=== PATIENT | female | born 1950 | race Caucasian/White ===

== ENCOUNTER → 2017-08-16 | Outpatient (CLI) | payer MEDICARE, BC ==
[~2017-08-16] MED LIST: ALPR.5CR PO; AMLO10 PO; AMLODIPINE-OLM1 EAC2 PO; ASPI325 PO; ASPI81EC PO; Aspirin EC81 MG PO; CHOL10002 PO; CIPR500 PO; CYAN500 PO; DICL75ER PO; DRON400T PO; DULO30 PO; DULO60 PO; ELIQUIS5 MG PO; ERGO400 PO; EXFORGE HCT; EXFORGE HCT 101 EAC2 PO; GABA100 PO; Glucophage1000 MG PO; HYDACE5 PO; HYDCHL12.5 PO; IBUP600 PO; IPRA.03NI; LEVSOD100 PO; LEVSOD75 PO; MAGCHL64ER; MAGNESIUM250 MG; MAGOXI400 PO; METF500 PO; MULVITMIND PO; NEBI10 PO; NEBI5 PO; OMEG1CAP30 PO; OMEP20ER PO; ONGLYZA5 MG PO; PSYL5.85P PO; Phentermine HCl15 MG PO; RANI150 PO; ROSU10TA PO; SAXA2.5T PO; Super B Comple150 MG PO; TOCO400 PO; TOPI25 PO; VALS80 PO; WARF7.5 PO; ZOLP10 PO
== END ==
LOC: LAB EV 11:15 → LAB SHORT 11:15
DX: R39.198 Other difficulties with micturition (principal)
CPT/HCPCS: 87086

== ENCOUNTER → 2018-05-18 | Outpatient (CLI) | payer MEDICARE, BC | END | disposition home or self-care (01) | LOC: LAB EV 17:57 → LAB SHORT 17:57 | DX: N90.7 Vulvar cyst (principal) | CPT/HCPCS: 87070; 87075; 87077; 87186; 87205 ==

== ENCOUNTER → 2018-12-07 | Outpatient (CLI) | payer MEDICARE, BC | END | disposition home or self-care (01) | LOC: LAB SHORT 12:05 → PLD 12:05 | DX: L60.2 Onychogryphosis (principal); B35.1 Tinea unguium | CPT/HCPCS: 88305; 88312 ==

== ENCOUNTER → 2019-05-01 | Outpatient (CLI) | payer MEDICARE, BC ==
[2019-05-01 13:23] LABS: BASOPHILS ABSOLUTE AUTO 0.07 K/mm3 (0.00-0.23); BASOPHILS PERCENT AUTO 1 % (0-2); EOSINOPHILS ABSOLUTE AUTO 0.25 K/mm3 (0.00-0.68); EOSINOPHILS PERCENT AUTO 2 % (0-6); Hematocrit 38.8 % (33.0-51.0); Hemoglobin 13.3 g/dL (11.5-16.0); IMMATURE GRAN ABSOLUTE AUTO 0.06 K/mm3 (0.00-0.10); IMMATURE GRAN PERCENT AUTO 1 % (0-1); LYMPHOCYTES ABSOLUTE AUTO 1.76 K/mm3 (0.84-5.20); LYMPHOCYTES PERCENT AUTO 15 % (21-46); MONOCYTES ABSOLUTE AUTO 0.91 K/mm3 (0.16-1.47); MONOCYTES PERCENT AUTO 8 % (4-13); Mean Corpuscular HGB 30.9 pg (26.0-34.0); Mean Corpuscular HGB Conc 34.3 g/dL (31.5-36.5); Mean Corpuscular Volume 90 fL (80-100); Mean Platelet Volume 10.2 fL (9.1-12.4); NEUTROPHILS ABSOLUTE AUTO 8.72 K/mm3 (1.96-9.15); NEUTROPHILS PERCENT AUTO 74 % (41-73); Platelet Count 274 K/mm3 (150-400); RDW Coefficient Variation 12.9 % (11.7-14.2); RDW Standard Deviation 42.2 fL (35.1-46.3); White Blood Cell Count 11.77 K/mm3 (4.00-11.30)
[2019-05-01 13:42] LABS: Alanine Aminotransfer (ALT/SGP 28 U/L (12-78); Albumin, Blood 4.1 g/dL (3.4-5.0); Albumin/Globulin Ratio 1.1 (0.8-1.8); Alk Phos 82 U/L (40-126); Anion Gap 12 mmol/L (6-16); Aspartate Aminotrans (AST/SGOT 21 U/L (12-37); Bilirubin, Total 0.9 mg/dL (0.1-1.0); Blood Urea Nitrogen 10 mg/dL (8-24); Bun/Creatinine Ratio 10.9 (12.0-20.0); CO2, Blood 24 mmol/L (21-32); Calcium, Blood 9.2 mg/dL (8.5-10.1); Chloride, Blood 99 mmol/L (98-108); Creatinine, Blood 0.92 mg/dL (0.40-1.00); Globulin, Blood 3.7 g/dL (2.2-4.0); Glomerular Filtration Rate >60 (60-); Glucose, Blood 95 mg/dL (70-99); Potassium, Blood 3.8 mmol/L (3.5-5.5); Sodium, Blood 135 mmol/L (136-145); Total Protein, Blood 7.8 g/dL (6.4-8.2)
== END | disposition home or self-care (01) ==
LOC: LAB EV 13:19 → LAB SHORT 13:19
PROVIDERS: Physician Assistant
DX: R10.32 Left lower quadrant pain (principal)
CPT/HCPCS: 80053; 83690; 85025

== ENCOUNTER 2020-04-02 07:33 | Day surgery (SDC) | payer MEDICARE, BC ==
[~2020-04-02] VITALS: Ht 167.6 cm; Wt 125.3 kg
[~2020-04-02 07:33] MED LIST changes: +Avapro300 MG PO; +CLOP75 PO; +METO50ER PO; +Neurontin300 MG PO; +Pepcid 20 mg Ta20 MG PO
[2020-04-02] MEDS ORDERED: ALPR1 (08:24)
[2020-04-02] MEDS ORDERED: ALPR.5 (08:25)
[2020-04-02] MEDS ORDERED: DIAZ5 (08:25)
== END 2020-04-02 10:08 | disposition home or self-care (01) ==
LOC: ORSCSDS 07:33
PROVIDERS: Internal Medicine Gastroenterology
PROC: 0DBH8ZX Excision of Cecum, Via Natural or Artificial Opening Endoscopic, Diagnostic (ICD-10-PCS; principal; 2020-04-02 09:00)
PROC: 0DBN8ZX Excision of Sigmoid Colon, Via Natural or Artificial Opening Endoscopic, Diagnostic (ICD-10-PCS; principal; 2020-04-02 09:00)
PROC: 0DBM8ZX Excision of Descending Colon, Via Natural or Artificial Opening Endoscopic, Diagnostic (ICD-10-PCS; principal; 2020-04-02 09:00)
PROC: 0DBK8ZX Excision of Ascending Colon, Via Natural or Artificial Opening Endoscopic, Diagnostic (ICD-10-PCS; principal; 2020-04-02 09:00)
DX: Z86.010 Personal history of colon polyps (principal); D12.0 Benign neoplasm of cecum; D12.2 Benign neoplasm of ascending colon; D12.4 Benign neoplasm of descending colon; D12.5 Benign neoplasm of sigmoid colon; K57.30 Diverticulosis of large intestine without perforation or abscess without bleeding; N81.6 Rectocele; G47.33 Obstructive sleep apnea (adult) (pediatric); J44.9 Chronic obstructive pulmonary disease, unspecified; I48.91 Unspecified atrial fibrillation; I10 Essential (primary) hypertension; E66.01 Morbid (severe) obesity due to excess calories; Z68.41 Body mass index [BMI] 40.0-44.9, adult; Z79.01 Long term (current) use of anticoagulants; Z79.82 Long term (current) use of aspirin; Z79.4 Long term (current) use of insulin; Z79.899 Other long term (current) drug therapy
CPT/HCPCS: 82947; 88305; J0330; J0461; J2405; J2704; J7120

== ENCOUNTER 2020-05-08 12:21 | Emergency (ER) | payer MEDICARE, BC ==
[~2020-05-08] VITALS: Ht 167.6 cm; Wt 127.0 kg
[~2020-05-08 12:21] MED LIST changes: +ALPR.5; +ALPR1; +DIAZ5
[2020-05-08] MEDS ORDERED: VICTOZA 2-0.6 MG/0.1 SC (15:58)
== END 2020-05-08 16:27 | disposition home or self-care (01) ==
LOC: ER 12:21
DX: S06.0X9A Concussion with loss of consciousness of unspecified duration, initial encounter (principal); E11.9 Type 2 diabetes mellitus without complications; I10 Essential (primary) hypertension; E78.5 Hyperlipidemia, unspecified; E03.9 Hypothyroidism, unspecified; Z79.82 Long term (current) use of aspirin; Z79.01 Long term (current) use of anticoagulants; Z79.02 Long term (current) use of antithrombotics/antiplatelets; Z79.84 Long term (current) use of oral hypoglycemic drugs; Z91.018 Allergy to other foods; Z79.899 Other long term (current) drug therapy; Z86.73 Personal history of transient ischemic attack (TIA), and cerebral infarction without residual deficits; W01.198A Fall on same level from slipping, tripping and stumbling with subsequent striking against other object, initial encounter
CPT/HCPCS: 70450; 99284-25

== ENCOUNTER 2020-07-08 18:24 | Emergency (ER) | payer MEDICARE, BC ==
[~2020-07-08] VITALS: Ht 167.6 cm; Wt 127.0 kg
[~2020-07-08 18:24] MED LIST changes: +VICTOZA 2-0.6 MG/0.1 SC
[2020-07-08 19:39] LABS: BASOPHILS ABSOLUTE AUTO 0.07 K/mm3 (0.00-0.23); BASOPHILS PERCENT AUTO 1 % (0-2); EOSINOPHILS ABSOLUTE AUTO 0.15 K/mm3 (0.00-0.68); EOSINOPHILS PERCENT AUTO 1 % (0-6); Hematocrit 40.1 % (33.0-51.0); Hemoglobin 13.7 g/dL (11.5-16.0); IMMATURE GRAN PERCENT AUTO 1 % (0-1); LYMPHOCYTES ABSOLUTE AUTO 2.25 K/mm3 (0.84-5.20); LYMPHOCYTES PERCENT AUTO 15 % (21-46); MONOCYTES ABSOLUTE AUTO 0.96 K/mm3 (0.16-1.47); MONOCYTES PERCENT AUTO 6 % (4-13); Mean Corpuscular HGB Conc 34.2 g/dL (31.5-36.5); Mean Corpuscular Volume 91 fL (80-100); NEUTROPHILS ABSOLUTE AUTO 11.38 K/mm3 (1.96-9.15); NEUTROPHILS PERCENT AUTO 76 % (41-73); Platelet Count 280 K/mm3 (150-400); RDW Coefficient Variation 12.8 % (11.7-14.2); RDW Standard Deviation 42.7 fL (35.1-46.3); Red Blood Cell Count 4.42 M/mm3 (3.80-5.20); White Blood Cell Count 15.01 K/mm3 (4.00-11.30)
[2020-07-08 19:58] LABS: Alanine Aminotransfer (ALT/SGP 40 U/L (12-78); Albumin, Blood 3.8 g/dL (3.4-5.0); Albumin/Globulin Ratio 1.1 (0.8-1.8); Alk Phos 84 U/L (50-136); Anion Gap 9 mmol/L (6-16); Aspartate Aminotrans (AST/SGOT 26 U/L (12-37); Bilirubin, Total 0.6 mg/dL (0.1-1.0); Blood Urea Nitrogen 12 mg/dL (8-24); Bun/Creatinine Ratio 17.7 (12.0-20.0); CO2, Blood 22 mmol/L (21-32); Calcium, Blood 9.5 mg/dL (8.5-10.1); Chloride, Blood 101 mmol/L (98-108); Creatinine, Blood 0.68 mg/dL (0.40-1.00); Globulin, Blood 3.6 g/dL (2.2-4.0); Glomerular Filtration Rate >60 (60-); Glucose, Blood 112 mg/dL (70-99); Potassium, Blood 4.2 mmol/L (3.5-5.5); Sodium, Blood 132 mmol/L (136-145); Total Protein, Blood 7.4 g/dL (6.4-8.2); Troponin I <0.015 ng/mL (0.000-0.040)
[2020-07-08] MEDS ORDERED: HYDR1TAB94 PO (21:39)
[2020-07-08] MEDS ORDERED: CYCL10 PO (21:39)
== END 2020-07-08 22:00 | disposition home or self-care (01) ==
LOC: ER 18:24
PROVIDERS: Physician Assistant
DX: R55 Syncope and collapse (principal); S00.03XA Contusion of scalp, initial encounter; E11.9 Type 2 diabetes mellitus without complications; E03.9 Hypothyroidism, unspecified; G43.909 Migraine, unspecified, not intractable, without status migrainosus; Z86.73 Personal history of transient ischemic attack (TIA), and cerebral infarction without residual deficits; Z79.82 Long term (current) use of aspirin; Z79.84 Long term (current) use of oral hypoglycemic drugs; Z79.899 Other long term (current) drug therapy; W01.198A Fall on same level from slipping, tripping and stumbling with subsequent striking against other object, initial encounter; I10 Essential (primary) hypertension; Z91.018 Allergy to other foods
CPT/HCPCS: 36415; 70450; 71046; 72125; 80053; 84484; 85025; 93005; 93010; 99284-25; A9270

== ENCOUNTER → 2020-10-15 | Outpatient (CLI) | payer MEDICARE ==
[~2020-10-15] MED LIST changes: +CYCL10 PO; +HYDR1TAB94 PO
== END ==
LOC: LAB SHORT 18:48 → LAB 18:48
DX: R30.0 Dysuria (principal)
CPT/HCPCS: 87086

== ENCOUNTER 2021-01-15 13:49 | Emergency (ER) | payer MEDICARE, BC ==
[~2021-01-15] VITALS: Ht 167.6 cm; Wt 122.5 kg
[~2021-01-15 13:49] MED LIST changes: -AMLO10 PO; +Aspir 8181 MG PO; -Aspirin EC81 MG PO; -Glucophage1000 MG PO; +Hair, Skin & N1 EACH PO; +METFORMIN HCL1000 M7 PO; -MULVITMIND PO
[2021-01-15 15:05] LABS: BASOPHILS ABSOLUTE AUTO 0.06 K/mm3 (0.00-0.23); BASOPHILS PERCENT AUTO 1 % (0-2); EOSINOPHILS ABSOLUTE AUTO 0.12 K/mm3 (0.00-0.68); EOSINOPHILS PERCENT AUTO 1 % (0-6); Hematocrit 41.2 % (33.0-51.0); Hemoglobin 14.2 g/dL (11.5-16.0); IMMATURE GRAN ABSOLUTE AUTO 0.06 K/mm3 (0.00-0.10); IMMATURE GRAN PERCENT AUTO 1 % (0-1); LYMPHOCYTES ABSOLUTE AUTO 2.38 K/mm3 (0.84-5.20); LYMPHOCYTES PERCENT AUTO 27 % (21-46); MONOCYTES ABSOLUTE AUTO 0.74 K/mm3 (0.16-1.47); MONOCYTES PERCENT AUTO 8 % (4-13); Mean Corpuscular HGB 30.3 pg (26.0-34.0); Mean Corpuscular HGB Conc 34.5 g/dL (31.5-36.5); Mean Corpuscular Volume 88 fL (80-100); Mean Platelet Volume 10.5 fL (9.1-12.4); NEUTROPHILS ABSOLUTE AUTO 5.59 K/mm3 (1.96-9.15); NEUTROPHILS PERCENT AUTO 62 % (41-73); Platelet Count 285 K/mm3 (150-400); RDW Coefficient Variation 12.9 % (11.7-14.2); RDW Standard Deviation 41.1 fL (35.1-46.3); Red Blood Cell Count 4.69 M/mm3 (3.80-5.20); White Blood Cell Count 8.95 K/mm3 (4.00-11.30)
[2021-01-15 15:21] LABS: Anion Gap 8 mmol/L (6-16); Blood Urea Nitrogen 9 mg/dL (8-24); Bun/Creatinine Ratio 12.3 (12.0-20.0); CO2, Blood 24 mmol/L (21-32); Calcium, Blood 8.9 mg/dL (8.5-10.1); Chloride, Blood 105 mmol/L (98-108); Creatinine, Blood 0.73 mg/dL (0.40-1.00); Glomerular Filtration Rate >60 (60-); Glucose, Blood 98 mg/dL (70-99); Potassium, Blood 3.9 mmol/L (3.5-5.5); Sodium, Blood 137 mmol/L (136-145)
[2021-01-15 16:12] LABS: International Normalized Ratio 1.01; Prothrombin Time Results 10.9 Sec (9.7-11.5)
[2021-01-15] MEDS ORDERED: Venlafaxine HC150 MG PO (17:25)
[2021-01-15] MEDS ORDERED: ROSUVASTATIN CA10 MG PO (17:27)
[2021-01-15] MEDS ORDERED: Amlodipine Bes2.5 MG PO (17:53)
[2021-01-15] MEDS ORDERED: LISI5 PO (18:35)
[2021-01-15] MEDS ORDERED: CLOP75 PO (18:35)
== END 2021-01-15 19:05 | disposition home or self-care (01) ==
LOC: ER 13:49
PROVIDERS: Student in an Organized Health Care Education/Training Program
DX: G45.9 Transient cerebral ischemic attack, unspecified (principal); I10 Essential (primary) hypertension; E11.9 Type 2 diabetes mellitus without complications; E78.5 Hyperlipidemia, unspecified; E03.9 Hypothyroidism, unspecified; G43.909 Migraine, unspecified, not intractable, without status migrainosus; Z91.018 Allergy to other foods; Z79.899 Other long term (current) drug therapy; Z79.84 Long term (current) use of oral hypoglycemic drugs; Z79.82 Long term (current) use of aspirin; Z79.01 Long term (current) use of anticoagulants
CPT/HCPCS: 36415; 70450; 80048; 85025; 85610; 85730; 93005; 93010; 96374; 99284-25; A9270; J2765

== ENCOUNTER → 2023-09-14 | Outpatient (CLI) | payer MEDICARE, BC ==
[~2023-09-14] MED LIST changes: +Amlodipine Bes2.5 MG PO; +LISI5 PO; +ROSUVASTATIN CA10 MG PO; +Venlafaxine HC150 MG PO
[2023-09-15 22:57] LABS: Adenovirus F 40/41 Not Detected (NOT DETECT); Astrovirus Not Detected (NOT DETECT); Campylobacter Sp Not Detected (NOT DETECT); Cryptosporidium Not Detected (NOT DETECT); Cyclospora Cayetanensis Not Detected (NOT DETECT); E. Coli O157 Not Detected (NOT DETECT); Entamoeba Histolytica Not Detected (NOT DETECT); Enteroaggregative E. coli-EAEC Not Detected (NOT DETECT); Enteropathogenic E. coli-EPEC Not Detected (NOT DETECT); Enterotoxigenic E. coli-ETEC Not Detected (NOT DETECT); Giardia Lamblia Not Detected (NOT DETECT); Norovirus GI/GII Not Detected (NOT DETECT); Plesiomonas Shigelloides Not Detected (NOT DETECT); Rotavirus A Not Detected (NOT DETECT); Salmonella Sp Not Detected (NOT DETECT); Sapovirus Not Detected (NOT DETECT); Shiga Toxin-prod E. coli-STEC Not Detected (NOT DETECT); Shigella/Enteroin E. coli-EIEC Not Detected (NOT DETECT); Vibrio Cholerae Not Detected (NOT DETECT); Vibrio Sp Not Detected (NOT DETECT); Yersinia Enterocolitica Not Detected (NOT DETECT)
[2023-09-16 11:27] LABS: C DIFFICILE DNA Duplicate (Negative)
[2023-09-18 12:35] LABS: ROTAVIRUS AG BY EIA Negative (Negative)
[2023-09-19 13:31] LABS: NOROVIRUS 1 BY PCR Not Detected; NOROVIRUS 2 BY PCR Not Detected
[2023-09-19 20:32] LABS: OVA AND PARASITE,FECAL INTERP Negative (Negative)
== END | disposition home or self-care (01) ==
LOC: LAB SHORT 10:45 → LAB 10:45
PROVIDERS: Physician Assistant
DX: R19.7 Diarrhea, unspecified (principal)
CPT/HCPCS: 87015; 87045; 87046; 87177; 87205; 87209; 87425; 87507; 87798; 87899

== ENCOUNTER 2024-01-02 14:07 | Day surgery (SDC) | payer MEDICARE, BC ==
[2024-01-02] VITALS (24 sets, daily range): BP systolic 79–125; BP diastolic 55–96
[~2024-01-02] VITALS: Ht 167.6 cm; Wt 127.0 kg
[2024-01-02] MEDS ORDERED: AMLO5 PO (14:47)
[2024-01-02] MEDS ORDERED: Amiodarone HCl200 MG PO (14:47)
[2024-01-02] MEDS ORDERED: OZEMPIC0.25 MG/02 SC (14:49)
[2024-01-02] MEDS ORDERED: METO100ER PO (14:50)
[2024-01-02] MEDS ORDERED: KAPSPARGO SPRIN50 MG PO (14:50)
[2024-01-02] MEDS ORDERED: NS 1,000 ML IV ONE (14:53)
[2024-01-02] MEDS ORDERED: Lidocaine HCl 1% 20 ML MDV ONE (15:06)
--- NOTE | 2024-01-02 16:20 | NUR ---
PT AWAKE AND CONVERSING APPROPRIATELY POST PROCEDURE, DENIES PAIN. PT REPORTS HER SOB IS GREATLY IMPROVED POST PROCEDURE, VSS.
--- NOTE | 2024-01-02 16:47 | NUR ---
PT DRESSED SELF WITHOUT PROBLEM, IV REMOVED-CANNULA INTACT. PT AND SPOUSE RECEIVED DISCHARGE INSTRUCTIONS, MED LIST AND AFTER CARE INSTRUCTIONS; VERBALIZED GOOD UNDERSTANDING. PT LEFT FACILITY VIA W/C, CONDITION STABLE.
[2024-01-02] MEDS ORDERED: Propofol 10mg/ml 20 ml Vial (Procedural) IV ONE (18:06)
== END 2024-01-02 16:47 | disposition home or self-care (01) ==
LOC: MHTC 14:07
DX: I48.0 Paroxysmal atrial fibrillation (principal); I15.9 Secondary hypertension, unspecified; I25.118 Atherosclerotic heart disease of native coronary artery with other forms of angina pectoris; K21.9 Gastro-esophageal reflux disease without esophagitis; E78.5 Hyperlipidemia, unspecified; I10 Essential (primary) hypertension; E03.9 Hypothyroidism, unspecified; E11.9 Type 2 diabetes mellitus without complications; E55.9 Vitamin D deficiency, unspecified; G47.33 Obstructive sleep apnea (adult) (pediatric); Z91.010 Allergy to peanuts
CPT/HCPCS: 92960; 93005; 93010; J2704; J7030

== ENCOUNTER 2024-01-15 16:42 | Inpatient (IN) | payer MEDICARE, BC ==
[~2024-01-15] VITALS: Ht 170.2 cm; Wt 128.8 kg
[~2024-01-15 16:42] MED LIST changes: +AMLO5 PO; +Amiodarone HCl200 MG PO; +KAPSPARGO SPRIN50 MG PO; +METO100ER PO; +OZEMPIC0.25 MG/02 SC
[2024-01-15 17:28] LABS: BASOPHILS ABSOLUTE AUTO 0.08 K/mm3 (0.00-0.23); BASOPHILS PERCENT AUTO 1 % (0-2); EOSINOPHILS ABSOLUTE AUTO 0.02 K/mm3 (0.00-0.68); EOSINOPHILS PERCENT AUTO 0 % (0-6); Hematocrit 40.3 % (33.0-51.0); Hemoglobin 13.4 g/dL (11.5-16.0); IMMATURE GRAN ABSOLUTE AUTO 0.06 K/mm3 (0.00-0.10); IMMATURE GRAN PERCENT AUTO 1 % (0-1); LYMPHOCYTES ABSOLUTE AUTO 2.34 K/mm3 (0.84-5.20); LYMPHOCYTES PERCENT AUTO 18 % (21-46); MONOCYTES ABSOLUTE AUTO 0.97 K/mm3 (0.16-1.47); MONOCYTES PERCENT AUTO 8 % (4-13); Mean Corpuscular HGB 29.6 pg (26.0-34.0); Mean Corpuscular HGB Conc 33.3 g/dL (31.5-36.5); Mean Corpuscular Volume 89 fL (80-100); Mean Platelet Volume 11.1 fL (9.1-12.4); NEUTROPHILS ABSOLUTE AUTO 9.48 K/mm3 (1.96-9.15); NEUTROPHILS PERCENT AUTO 73 % (41-73); Platelet Count 362 K/mm3 (150-400); RDW Coefficient Variation 14.6 % (11.7-14.2); Red Blood Cell Count 4.53 M/mm3 (3.80-5.20); White Blood Cell Count 12.95 K/mm3 (4.00-11.30)
[2024-01-15 18:01] LABS: Alanine Aminotransfer (ALT/SGP 327 U/L (12-78); Albumin, Blood 3.9 g/dL (3.4-5.0); Albumin/Globulin Ratio 1.1 (0.8-1.8); Alk Phos 242 U/L (50-136); Anion Gap 12 mmol/L (3-11); Aspartate Aminotrans (AST/SGOT 455 U/L (12-37); Bilirubin, Total 1.3 mg/dL (0.1-1.0); Blood Urea Nitrogen 23 mg/dL (8-24); Bun/Creatinine Ratio 20.7 (12.0-20.0); CO2, Blood 22 mmol/L (21-32); Calcium, Blood 8.9 mg/dL (8.5-10.1); Chloride, Blood 101 mmol/L (98-108); Creatinine, Blood 1.11 mg/dL (0.40-1.00); Globulin, Blood 3.5 g/dL (2.2-4.0); Glomerular Filtration Rate 52 (60-); Glucose, Blood 181 mg/dL (70-99); Magnesium, Blood 2.2 mg/dL (1.6-2.4); Potassium, Blood 3.4 mmol/L (3.5-5.5); Sodium, Blood 132 mmol/L (136-145); Total Protein, Blood 7.4 g/dL (6.4-8.2)
[2024-01-15] MEDS ORDERED: Furosemide 10 MG/ML 4ML Vial IV ONE (20:45)
[2024-01-15] MEDS ORDERED: NS 1,000 ML IV SCH ×2 (20:45)
[2024-01-15 20:59] LABS: Acetaminophen, Random <2.0 ug/mL (10.0-30.0)
[2024-01-15 23:16] LABS: Influenza A, PCR NEGATIVE (NEGATIVE); Influenza B, PCR NEGATIVE (NEGATIVE); Resp Syncytial Virus, PCR NEGATIVE (NEGATIVE); SARS-Cov-2 (COVID-19) PCR, MMC NEGATIVE (NEGATIVE)
[2024-01-15] MEDS ORDERED: Potassium Chloride 20 MEQ TabCR PO ONE (23:45)
[2024-01-16] VITALS (7 sets, daily range): BP systolic 109–154; BP diastolic 82–117
[2024-01-16] MEDS ORDERED: Ondansetron HCl 2 MG / ML 2ML Vial IV PRN (02:15)
[2024-01-16 05:37] LABS: BASOPHILS ABSOLUTE AUTO 0.06 K/mm3 (0.00-0.23); BASOPHILS PERCENT AUTO 0 % (0-2); EOSINOPHILS ABSOLUTE AUTO 0.01 K/mm3 (0.00-0.68); EOSINOPHILS PERCENT AUTO 0 % (0-6); Hemoglobin 13.2 g/dL (11.5-16.0); IMMATURE GRAN ABSOLUTE AUTO 0.09 K/mm3 (0.00-0.10); IMMATURE GRAN PERCENT AUTO 1 % (0-1); LYMPHOCYTES ABSOLUTE AUTO 2.32 K/mm3 (0.84-5.20); LYMPHOCYTES PERCENT AUTO 16 % (21-46); MONOCYTES ABSOLUTE AUTO 1.17 K/mm3 (0.16-1.47); MONOCYTES PERCENT AUTO 8 % (4-13); Mean Corpuscular HGB 29.6 pg (26.0-34.0); Mean Corpuscular Volume 90 fL (80-100); Mean Platelet Volume 11.3 fL (9.1-12.4); NEUTROPHILS ABSOLUTE AUTO 10.65 K/mm3 (1.96-9.15); NEUTROPHILS PERCENT AUTO 75 % (41-73); Platelet Count 336 K/mm3 (150-400); RDW Coefficient Variation 14.8 % (11.7-14.2); RDW Standard Deviation 47.7 fL (35.1-46.3); Red Blood Cell Count 4.46 M/mm3 (3.80-5.20)
[2024-01-16 06:13] LABS: Albumin, Blood 3.9 g/dL (3.4-5.0); Albumin/Globulin Ratio 1.1 (0.8-1.8); Bilirubin, Total 1.3 mg/dL (0.1-1.0); Bun/Creatinine Ratio 20.7 (12.0-20.0); Calcium, Blood 8.9 mg/dL (8.5-10.1); Creatinine, Blood 1.16 mg/dL (0.40-1.00); Globulin, Blood 3.4 g/dL (2.2-4.0); Potassium, Blood 3.7 mmol/L (3.5-5.5); Thyroid Stimulating Hormone 6.02 uIU/mL (0.360-4.800); Total Protein, Blood 7.3 g/dL (6.4-8.2)
[2024-01-16] MEDS ORDERED: Labetalol HCL 5 MG/ML 4ML Injection (Single Dose) IV PRN (08:00)
[2024-01-16] MEDS ORDERED: Furosemide 10 MG/ML 4ML Vial IV SCH (09:00)
[2024-01-16] MEDS ORDERED: TraZODone HCl 50 MG Tab PO PRN (17:55)
--- NOTE | 2024-01-16 18:55 | NUR ---
SHIFT SUMMARY PT CONT LEVEL OF CARE. PT NOTED TO BE A&O X4. PT IS INDEPENDENT IN ROOM. TELE REMAINS IN PLACE PT NOTED TO HAVE CONVERTED TO AFIB PHYSICIAN NOTIFIED WITH NO NEW ORDERS NOTED THIS SHIFT. THIS NURSE HAS CONSULTED PHYSICIAN SEVERAL TIMES THROUGHOUT THIS SHIFT IN REGARDS TO PT CONCERNS ABOUT HOME MEDICATIONS BEING RESTARTED AND PT GETTING SOME TYPE OF MEDICATION TO HELP PT SLEEP AT NOC. PHYSICIAN HAS STATED ALL DAY THAT HE WOULD REASSESS AT AND LOOK. PHYSICIAN WAS CALLED AGAIN AROUND 1740 D/T PT WANTING TO LEAVE AMA D/T PHYSICIAN NOT ADDRESSING CONCERNS PHYSICIAN NOTED TO PLACE IN ORDERS AFTER DASHAWN ESPINOSA HAD SPOKE WITH PHYSICIAN.
[2024-01-16] MEDS ORDERED: Metoprolol Tartrate 1 MG/ML 5 ML VIAL IV ONE (20:00)
[2024-01-16 20:36] LABS: Base Excess Venous -1.4 mmol/L; Bicarbonate Venous 24.5 mmol/L (24.0-30.0); PCO2 Venous 25.2 mmHg (38-42)
[2024-01-16 20:37] LABS: pH Blood Venous 7.53 (7.34-7.37)
[2024-01-16 20:52] LABS: Bun/Creatinine Ratio 17.9 (12.0-20.0); Calcium, Blood 8.9 mg/dL (8.5-10.1); Creatinine, Blood 1.45 mg/dL (0.40-1.00); Potassium, Blood 3.1 mmol/L (3.5-5.5)
[2024-01-16] MEDS ORDERED: HydrOXYzine Pamoate 25 MG Cap PO PRN (20:55)
[2024-01-16] MEDS ORDERED: Magnesium Oxide 400 MG Tab PO SCH (21:00)
[2024-01-16] MEDS ORDERED: Gabapentin 300 MG Cap PO SCH (21:00)
[2024-01-16] MEDS ORDERED: Metoprolol Succinate 50 MG TABCR PO ONE (21:00)
[2024-01-16] MEDS ORDERED: Irbesartan 150 MG Tab PO SCH (21:00)
[2024-01-16] MEDS ORDERED: Apixaban 5 MG Tab PO SCH (21:00)
[2024-01-16] MEDS ORDERED: Metoprolol Tartrate 1 MG/ML 5 ML VIAL IV PRN (22:40)
[2024-01-16] MEDS ORDERED: Potassium Chloride 20 MEQ TabCR PO SCH (23:00)
[2024-01-17] MEDS ORDERED: Potassium Chloride 40 MEQ IV ONE (00:45)
[2024-01-17] MEDS ORDERED: LORazepam 0.5 MG Tab PO ONE (00:45)
[2024-01-17 01:17] LABS: Digoxin (Lanoxin) 0.12 ug/mL (0.80-2.00)
[2024-01-17] MEDS ORDERED: Potassium Chloride 40 MEQ in NS 250 ML IV ONE (01:20)
[2024-01-17] MEDS ORDERED: Potassium Chl 20MEQ/Water100ML 100 ML IV SCH (01:25)
[2024-01-17] MEDS ORDERED: NS 250 ML IV PRN (01:55)
[2024-01-17 02:32] VITALS: BP 131/105
[2024-01-17 04:55] LABS: Base Excess Venous 1.3 mmol/L; Bicarbonate Venous 24.7 mmol/L (24.0-30.0); PCO2 Venous 42.4 mmHg (38-42)
[2024-01-17 05:25] LABS: BASOPHILS ABSOLUTE AUTO 0.04 K/mm3 (0.00-0.23); BASOPHILS PERCENT AUTO 0 % (0-2); EOSINOPHILS ABSOLUTE AUTO 0.08 K/mm3 (0.00-0.68); EOSINOPHILS PERCENT AUTO 1 % (0-6); Hematocrit 36.9 % (33.0-51.0); Hemoglobin 11.9 g/dL (11.5-16.0); IMMATURE GRAN ABSOLUTE AUTO 0.05 K/mm3 (0.00-0.10); IMMATURE GRAN PERCENT AUTO 0 % (0-1); LYMPHOCYTES ABSOLUTE AUTO 2.46 K/mm3 (0.84-5.20); LYMPHOCYTES PERCENT AUTO 21 % (21-46); MONOCYTES ABSOLUTE AUTO 1.08 K/mm3 (0.16-1.47); MONOCYTES PERCENT AUTO 9 % (4-13); Mean Corpuscular HGB 29.8 pg (26.0-34.0); Mean Corpuscular HGB Conc 32.2 g/dL (31.5-36.5); Mean Corpuscular Volume 92 fL (80-100); Mean Platelet Volume 11.3 fL (9.1-12.4); NEUTROPHILS ABSOLUTE AUTO 7.89 K/mm3 (1.96-9.15); NEUTROPHILS PERCENT AUTO 68 % (41-73); NRBC ABSOLUTE 0.03 K/mm3 (0.00-0.02); NRBC Auto 0.3 /100 WBC (0.0-0.2); Platelet Count 264 K/mm3 (150-400); RDW Coefficient Variation 14.8 % (11.7-14.2); RDW Standard Deviation 49.7 fL (35.1-46.3)
[2024-01-17 05:54] LABS: Albumin, Blood 3.6 g/dL (3.4-5.0); Albumin/Globulin Ratio 1.2 (0.8-1.8); Bilirubin, Total 1.1 mg/dL (0.1-1.0); Bun/Creatinine Ratio 19.9 (12.0-20.0); Calcium, Blood 8.8 mg/dL (8.5-10.1); Creatinine, Blood 1.36 mg/dL (0.40-1.00); Globulin, Blood 3.1 g/dL (2.2-4.0); Potassium, Blood 4.4 mmol/L (3.5-5.5); Total Protein, Blood 6.7 g/dL (6.4-8.2)
[2024-01-17] MEDS ORDERED: Levothyroxine Sodium 0.1 MG Tab PO SCH (06:00)
[2024-01-17 07:21] VITALS: BP 149/104
[2024-01-17 07:24] VITALS: BP 127/100
--- NOTE | 2024-01-17 08:13 | NUR ---
SHIFT SUMMARY PT IS A&OX4, PLEASANT AND APPRECIATIVE OF CARES. HTN 154/101, HR 112, AFEBRILE, O2 SATS >95% ON RA, CPAP WHILE ASLEEP. PER TELEMETRY PT IS IN A-FIB 110'S-150'S BPM. 5 MG IV LOPRESSOR GIVEN Q2 FOR HR >110. PT HAS CHRONIC BACK PAIN, NO PRN PAIN MEDICATIONS ADMINISTERED. PT IS VERY ANXIOUS AND RESTLESS. FINALLY GOT A ONE TIME ORDER FOR 0.5 MG PO ATIVAN, PATIENT WAS THEN ABLE TO GET SOME SLEEP FOR ABOUT 5 HOURS. REPLACED K WITH IV, 40 mEq. MULTIPLE [facility] LAB VALUES CALLED T/O SHIFT. REVIEW LABS. PT IS AD CHRISTINE IN ROOM INDEPENDENTLY. PT VOIDING LARGE AMOUNTS OF CLEAR, LIGHT YELLOW URINE IN TOILET. NO BM THIS SHIFT. BED IN LOWEST POSITION, CALL LIGHT WITHIN REACH.
[2024-01-17] MEDS ORDERED: Cholecalciferol 1000 Unit Tablet (=25MCG) PO SCH (09:00)
[2024-01-17] MEDS ORDERED: MetFORMIN HCl 500 mg PO SCH (09:00)
[2024-01-17] MEDS ORDERED: Metoprolol Succinate 50 MG TABCR PO SCH (09:00)
[2024-01-17] MEDS ORDERED: Venlafaxine HCl 75 MG CapCR PO SCH (09:00)
[2024-01-17] MEDS ORDERED: Rosuvastatin Calcium 10 MG Tab PO SCH (09:00)
[2024-01-17] MEDS ORDERED: Alogliptin Benzoate 25 MG TAB PO SCH ×2 (09:00)
[2024-01-17] MEDS ORDERED: Multivitamins/Minerals TAB PO SCH (09:00)
[2024-01-17] MEDS ORDERED: FURO40 PO (13:54)
--- NOTE | 2024-01-17 14:16 | NUR ---
DISCHARGE SUMMARY PT DC THIS SHIFT. DC INSTRUCTION GONE OVER WITH PT AND PT BOTH OF WHICH STATED UNDERSTANDING. PT WAS ECORTED TO PRIVTE VEHILCE VIA WHEELCHAIR ACCOMPANIED BY EDGE BURNISHER UPPERS AND .
== END 2024-01-17 14:13 | disposition home or self-care (01) | DRG 291 ==
LOC: ER 16:42 → MEDS 16:43 → ENPENDDIS 01-17 13:42 → MEDS 01-17 14:13
PROVIDERS: Family Medicine; Internal Medicine; Nurse Practitioner Acute Care; Physician Assistant; Student in an Organized Health Care Education/Training Program; ADMIT Internal Medicine
DX: I13.0 Hypertensive heart and chronic kidney disease with heart failure and stage 1 through stage 4 chronic kidney disease, or unspecified chronic kidney disease (principal); I50.21 Acute systolic (congestive) heart failure; I48.20 Chronic atrial fibrillation, unspecified; E87.1 Hypo-osmolality and hyponatremia; Z68.41 Body mass index [BMI] 40.0-44.9, adult; N18.30 Chronic kidney disease, stage 3 unspecified; G47.33 Obstructive sleep apnea (adult) (pediatric); I44.7 Left bundle-branch block, unspecified; E27.8 Other specified disorders of adrenal gland; E87.6 Hypokalemia; Z79.890 Hormone replacement therapy; Z79.899 Other long term (current) drug therapy; Z79.84 Long term (current) use of oral hypoglycemic drugs; Z79.02 Long term (current) use of antithrombotics/antiplatelets; E03.9 Hypothyroidism, unspecified; G43.909 Migraine, unspecified, not intractable, without status migrainosus; M54.9 Dorsalgia, unspecified; G89.29 Other chronic pain; Z86.73 Personal history of transient ischemic attack (TIA), and cerebral infarction without residual deficits; I25.10 Atherosclerotic heart disease of native coronary artery without angina pectoris; F41.9 Anxiety disorder, unspecified; Z98.890 Other specified postprocedural states; Z90.49 Acquired absence of other specified parts of digestive tract; Z90.710 Acquired absence of both cervix and uterus; Z90.79 Acquired absence of other genital organ(s); Z90.722 Acquired absence of ovaries, bilateral; K74.60 Unspecified cirrhosis of liver
CPT/HCPCS: 0241U; 36415; 70450; 71045; 71046; 74177; 80048; 80053; 80162; 82803; 83605; 83690; 83735; 83880; 84443; 84484; 85025; 93005; 93010; 94762; 96361; 96374-59; 96375; 96376; 99285-25; A9270; C8929; G0378; G0480; J1940; J2405; J3480; J7030; J7050; Q0177; Q9957; Q9967

== ENCOUNTER 2024-04-24 00:55 | Emergency (ER) | payer MEDICARE, BC ==
[~2024-04-24] VITALS: Ht 167.6 cm; Wt 81.7 kg
[~2024-04-24 00:55] MED LIST changes: +FURO40 PO
[2024-04-24 01:07] VITALS: BP 112/67
[2024-04-24] MEDS ORDERED: Ondansetron HCl 2 MG / ML 2ML Vial IV PRN (01:20)
[2024-04-24 01:41] LABS: BASOPHILS ABSOLUTE AUTO 0.06 K/mm3 (0.00-0.23); BASOPHILS PERCENT AUTO 1 % (0-2); EOSINOPHILS ABSOLUTE AUTO 0.05 K/mm3 (0.00-0.68); EOSINOPHILS PERCENT AUTO 1 % (0-6); Hematocrit 41.1 % (33.0-51.0); Hemoglobin 13.5 g/dL (11.5-16.0); IMMATURE GRAN ABSOLUTE AUTO 0.03 K/mm3 (0.00-0.10); IMMATURE GRAN PERCENT AUTO 0 % (0-1); LYMPHOCYTES ABSOLUTE AUTO 1.45 K/mm3 (0.84-5.20); LYMPHOCYTES PERCENT AUTO 18 % (21-46); MONOCYTES ABSOLUTE AUTO 0.35 K/mm3 (0.16-1.47); MONOCYTES PERCENT AUTO 4 % (4-13); Mean Corpuscular HGB 28.2 pg (26.0-34.0); Mean Corpuscular HGB Conc 32.8 g/dL (31.5-36.5); Mean Corpuscular Volume 86 fL (80-100); Mean Platelet Volume 11.2 fL (9.1-12.4); NEUTROPHILS PERCENT AUTO 76 % (41-73); NRBC ABSOLUTE 0.02 K/mm3 (0.00-0.02); NRBC Auto 0.2 /100 WBC (0.0-0.2); Platelet Count 341 K/mm3 (150-400); RDW Coefficient Variation 20.7 % (11.7-14.2); RDW Standard Deviation 61.1 fL (35.1-46.3); Red Blood Cell Count 4.79 M/mm3 (3.80-5.20); White Blood Cell Count 8.04 K/mm3 (4.00-11.30)
[2024-04-24 02:03] LABS: Albumin/Globulin Ratio 0.8 (0.8-1.8); Bun/Creatinine Ratio 21.9 (12.0-20.0); Calcium, Blood 9.4 mg/dL (8.5-10.1); Creatinine, Blood 1.14 mg/dL (0.40-1.00); Globulin, Blood 3.6 g/dL (2.2-4.0); Potassium, Blood 4.6 mmol/L (3.5-5.5); Total Protein, Blood 6.6 g/dL (6.4-8.2)
[2024-04-24] MEDS ORDERED: NS 1,000 ML IV SCH (03:30)
[2024-04-24 04:02] LABS: Base Excess Venous -0.4 mmol/L; Bicarbonate Venous 24.4 mmol/L (24.0-30.0); PCO2 Venous 36.7 mmHg (38-42); pH Blood Venous 7.43 (7.34-7.37)
[2024-04-24 04:09] LABS: Beta-hydroxybutyrate 18.8 mg/dL (0.2-2.8)
[2024-04-24] MEDS ORDERED: DiphenhydrAMINE HCl 50 MG/ML 1ML Vial IV ONE (04:40)
[2024-04-24] MEDS ORDERED: Prochlorperazine Edisylate 10 mg Vial IV ONE (04:40)
[2024-04-24] MEDS ORDERED: CefTRIAXone Sodium 1,000 MG in NS 50 ML IV ONE (05:10)
[2024-04-24] MEDS ORDERED: CEPH500 PO (06:19)
[2024-04-24] MEDS ORDERED: ONDA4ODT MM (06:39)
[2024-04-24] MEDS ORDERED: RX Prepack 2 Tabs Ondansetron ODT 4MG UD ONE (06:40)
== END 2024-04-24 09:32 | disposition home or self-care (01) ==
LOC: ER 00:55
PROVIDERS: Emergency Medicine; Student in an Organized Health Care Education/Training Program
DX: R11.2 Nausea with vomiting, unspecified (principal); E86.0 Dehydration; L03.115 Cellulitis of right lower limb; R79.9 Abnormal finding of blood chemistry, unspecified; I11.0 Hypertensive heart disease with heart failure; I50.20 Unspecified systolic (congestive) heart failure; E78.5 Hyperlipidemia, unspecified; E03.9 Hypothyroidism, unspecified; I48.91 Unspecified atrial fibrillation; E11.9 Type 2 diabetes mellitus without complications; I25.10 Atherosclerotic heart disease of native coronary artery without angina pectoris; G43.909 Migraine, unspecified, not intractable, without status migrainosus; G47.33 Obstructive sleep apnea (adult) (pediatric); Z86.73 Personal history of transient ischemic attack (TIA), and cerebral infarction without residual deficits; Z79.890 Hormone replacement therapy; Z79.84 Long term (current) use of oral hypoglycemic drugs; Z79.02 Long term (current) use of antithrombotics/antiplatelets; Z79.899 Other long term (current) drug therapy; Z59.89 Other problems related to housing and economic circumstances
CPT/HCPCS: 74177; 80053; 82010; 82803; 83605; 83690; 85025; 86140; 93005; 93010; 96361; 96365-59; 96375; 99284-25; J0696; J0780; J1200; J2405; J7030; Q9967

== ENCOUNTER 2024-04-24 16:43 | Observation (INO) | payer MEDICARE, BC ==
[~2024-04-24] VITALS: Ht 167.6 cm; Wt 115.9 kg
[~2024-04-24 16:43] MED LIST changes: +CEPH500 PO; +ONDA4ODT MM
[2024-04-24 17:22] LABS: BASOPHILS ABSOLUTE AUTO 0.05 K/mm3 (0.00-0.23); BASOPHILS PERCENT AUTO 1 % (0-2); EOSINOPHILS ABSOLUTE AUTO 0.01 K/mm3 (0.00-0.68); EOSINOPHILS PERCENT AUTO 0 % (0-6); Hematocrit 47.1 % (33.0-51.0); Hemoglobin 14.8 g/dL (11.5-16.0); IMMATURE GRAN PERCENT AUTO 1 % (0-1); LYMPHOCYTES ABSOLUTE AUTO 1.59 K/mm3 (0.84-5.20); LYMPHOCYTES PERCENT AUTO 16 % (21-46); MONOCYTES PERCENT AUTO 7 % (4-13); Mean Corpuscular HGB 28.5 pg (26.0-34.0); Mean Corpuscular HGB Conc 31.4 g/dL (31.5-36.5); Mean Platelet Volume 11.3 fL (9.1-12.4); NEUTROPHILS PERCENT AUTO 76 % (41-73); NRBC ABSOLUTE 0.05 K/mm3 (0.00-0.02); NRBC Auto 0.5 /100 WBC (0.0-0.2); Platelet Count 374 K/mm3 (150-400); RDW Coefficient Variation 21.5 % (11.7-14.2); RDW Standard Deviation 67.3 fL (35.1-46.3); White Blood Cell Count 10.25 K/mm3 (4.00-11.30)
[2024-04-24 17:36] LABS: Mean Corpuscular Volume 91 fL (80-100)
[2024-04-24 17:44] LABS: Albumin, Blood 3.2 g/dL (3.4-5.0); Albumin/Globulin Ratio 0.8 (0.8-1.8); Bilirubin, Total 3.2 mg/dL (0.1-1.0); Bun/Creatinine Ratio 19.4 (12.0-20.0); Calcium, Blood 9.4 mg/dL (8.5-10.1); Creatinine, Blood 1.34 mg/dL (0.40-1.00); Globulin, Blood 3.8 g/dL (2.2-4.0); Magnesium, Blood 2.3 mg/dL (1.6-2.4); Potassium, Blood 4.6 mmol/L (3.5-5.5)
[2024-04-24 18:58] LABS: Source, Urine Clean Catch
[2024-04-24] MEDS ORDERED: NS 1,000 ML IV SCH (19:00)
[2024-04-24 19:20] LABS: Appearance, Urine Cloudy (Clear); Bilirubin, Urine Neg (Neg); Blood, Urine 5+ (Neg); Color, Urine Yellow (P-Yellow); Glucose Qualitative, Urine 3+ (Neg); Ketones, Urine Neg (Neg); Leukocyte Esterase, Urine Neg (Neg); Nitrite, Urine Neg (Neg); Protein, Urine 3+ (Neg); Urobilinogen, Urine 1+ (Normal)
[2024-04-24 19:27] LABS: Amorphous Heavy (0-Heavy); White Blood Cells, Urine 0-2 /hpf (0-5)
[2024-04-24 19:28] LABS: Bacteria Few /hpf; Squamous Epithelial Cells Not Seen /hpf (Few)
[2024-04-24 20:01] LABS: Influenza A, PCR NEGATIVE (NEGATIVE); Influenza B, PCR NEGATIVE (NEGATIVE); Resp Syncytial Virus, PCR NEGATIVE (NEGATIVE); SARS-Cov-2 (COVID-19) PCR, MMC NEGATIVE (NEGATIVE)
[2024-04-24] MEDS ORDERED: Metoprolol Tartrate 1 MG/ML 5 ML VIAL IV PRN (21:20)
[2024-04-24] MEDS ORDERED: FLU VACC TS2024-25(6MOS UP)/PF 45 MCG/0.5 ML SYRINGE IM SCH (21:25)
[2024-04-24 21:41] LABS: Acetaminophen, Random <2.0 ug/mL (10.0-30.0)
[2024-04-24 21:44] LABS: U Amphetamine Screen Not Detected; U Barbituate Screen Not Detected; U Benzodiazapine Screen DETECTED; U Buprenorphine Screen Not Detected; U Cannabinoids Screen Not Detected; U Cocaine Screen Not Detected; U Methadone Screen Not Detected; U Methamphetamine Screen Not Detected; U Opiates Screen Not Detected; U Oxycodone Screen Not Detected; U Phencyclidine Screen Not Detected
[2024-04-24] MEDS ORDERED: Furosemide 10 MG/ML 4ML Vial IV SCH (22:00)
[2024-04-24] MEDS ORDERED: Apixaban 5 MG Tab PO SCH (22:00)
[2024-04-24] MEDS ORDERED: Metoprolol Succinate 50 MG TABCR PO SCH (22:00)
[2024-04-24 22:41] LABS: Magnesium, Blood 2.2 mg/dL (1.6-2.4)
[2024-04-24 22:43] LABS: Thyroid Stimulating Hormone 16.6 uIU/mL (0.360-4.800)
[2024-04-25 00:22] LABS: Base Excess Venous -9.3 mmol/L; Bicarbonate Venous 18.3 mmol/L (24.0-30.0); PCO2 Venous 29.2 mmHg (38-42); pH Blood Venous 7.36 (7.34-7.37)
[2024-04-25 05:27] LABS: Hematocrit 44.2 % (33.0-51.0); Hemoglobin 14.2 g/dL (11.5-16.0); Mean Corpuscular HGB 28.2 pg (26.0-34.0); Mean Corpuscular HGB Conc 32.1 g/dL (31.5-36.5); Mean Corpuscular Volume 88 fL (80-100); Mean Platelet Volume 11.4 fL (9.1-12.4); NRBC ABSOLUTE 0.05 K/mm3 (0.00-0.02); NRBC Auto 0.4 /100 WBC (0.0-0.2); Platelet Count 356 K/mm3 (150-400); RDW Coefficient Variation 21.3 % (11.7-14.2); RDW Standard Deviation 64.6 fL (35.1-46.3); Red Blood Cell Count 5.03 M/mm3 (3.80-5.20); White Blood Cell Count 11.81 K/mm3 (4.00-11.30)
[2024-04-25 05:44] LABS: International Normalized Ratio 2.55; Prothrombin Time Results 25.5 Sec (9.7-11.5)
[2024-04-25] MEDS ORDERED: Levothyroxine Sodium 0.1 MG Tab PO SCH (06:00)
[2024-04-25 06:11] LABS: Magnesium, Blood 2.3 mg/dL (1.6-2.4)
[2024-04-25 06:22] LABS: Albumin, Blood 3.2 g/dL (3.4-5.0); Bilirubin, Total 3.5 mg/dL (0.1-1.0); Bun/Creatinine Ratio 18.1 (12.0-20.0); Calcium, Blood 9.5 mg/dL (8.5-10.1); Creatinine, Blood 1.6 mg/dL (0.40-1.00); Globulin, Blood 3.3 g/dL (2.2-4.0); Potassium, Blood 4.1 mmol/L (3.5-5.5); Total Protein, Blood 6.5 g/dL (6.4-8.2)
[2024-04-25] MEDS ORDERED: Insulin Human Lispro 100 Units/ML 3ML Syringe SC SCH (07:30)
[2024-04-25 11:44] VITALS: BP 110/90
[2024-04-25 16:22] VITALS: BP 110/83
[2024-04-25] MEDS ORDERED: NS 1,000 ML IV SCH (19:20)
[2024-04-25] MEDS ORDERED: Sodium Bicarb 8.4% Inj 100 MEQ in Sodium Chloride 0.45% 1,000 ML IV SCH (19:30)
[2024-04-25] MEDS ORDERED: Sodium Bicarb 8.4% Inj 150 MEQ in Dextrose 5% 1,000 ML IV SCH (19:45)
[2024-04-25 20:49] VITALS: BP 118/80
[2024-04-25 23:16] VITALS: BP 105/82
[2024-04-26 04:14] VITALS: BP 106/92
[2024-04-26 05:04] LABS: BASOPHILS ABSOLUTE AUTO 0.06 K/mm3 (0.00-0.23); BASOPHILS PERCENT AUTO 1 % (0-2); EOSINOPHILS ABSOLUTE AUTO 0.05 K/mm3 (0.00-0.68); EOSINOPHILS PERCENT AUTO 1 % (0-6); Hemoglobin 13.9 g/dL (11.5-16.0); IMMATURE GRAN ABSOLUTE AUTO 0.05 K/mm3 (0.00-0.10); IMMATURE GRAN PERCENT AUTO 1 % (0-1); LYMPHOCYTES PERCENT AUTO 15 % (21-46); MONOCYTES ABSOLUTE AUTO 0.44 K/mm3 (0.16-1.47); MONOCYTES PERCENT AUTO 4 % (4-13); Mean Corpuscular HGB 28.3 pg (26.0-34.0); Mean Corpuscular HGB Conc 33.1 g/dL (31.5-36.5); Mean Corpuscular Volume 86 fL (80-100); Mean Platelet Volume 10.9 fL (9.1-12.4); NEUTROPHILS ABSOLUTE AUTO 7.82 K/mm3 (1.96-9.15); NEUTROPHILS PERCENT AUTO 79 % (41-73); NRBC ABSOLUTE 0.02 K/mm3 (0.00-0.02); NRBC Auto 0.2 /100 WBC (0.0-0.2); Platelet Count 339 K/mm3 (150-400); RDW Coefficient Variation 21.1 % (11.7-14.2); RDW Standard Deviation 62.4 fL (35.1-46.3); Red Blood Cell Count 4.91 M/mm3 (3.80-5.20); White Blood Cell Count 9.92 K/mm3 (4.00-11.30)
[2024-04-26 05:28] LABS: C-REACTIVE PROTEIN, EXT RANGE 6.68 mg/dL (0.000-0.300)
[2024-04-26 05:39] LABS: Albumin, Blood 2.9 g/dL (3.4-5.0); Albumin/Globulin Ratio 0.9 (0.8-1.8); Bilirubin, Total 2.7 mg/dL (0.1-1.0); Bun/Creatinine Ratio 18.9 (12.0-20.0); Calcium, Blood 9.2 mg/dL (8.5-10.1); Creatinine, Blood 1.8 mg/dL (0.40-1.00); Globulin, Blood 3.3 g/dL (2.2-4.0); Phosphorus, Blood 3.5 mg/dL (2.5-4.9); Potassium, Blood 3.6 mmol/L (3.5-5.5); Total Protein, Blood 6.2 g/dL (6.4-8.2)
[2024-04-26] MEDS ORDERED: Levothyroxine Sodium 0.125 MG Tab PO SCH (06:00)
[2024-04-26 07:39] VITALS: BP 93/66
[2024-04-26 10:08] VITALS: BP 105/79
[2024-04-26 10:39] VITALS: BP 105/79
[2024-04-26 18:16] LABS: HEPATITIS A ANTIBODY, IGM Negative (Negative); HEPATITIS B CORE ANTIBODY, IGM Negative (Negative); HEPATITIS B SURFACE ANTIGEN Negative (Negative); HEPATITIS C AB CIA INTERP Negative (Negative); HEPATITIS C ANTIBODY CIA INDEX 0.14 IV
[2024-04-27 07:17] LABS: ANTI-NUCLEAR AB ANA,IGG ELISA Detected (None Detected)
[2024-04-28 07:50] LABS: ANA PATTERN Homogeneous; ANTINUCLEAR AB (ANA),HEP-2,IGG Detected (<1:80)
== END 2024-04-26 11:13 | disposition short-term general hospital (02) ==
LOC: ER 16:43 → PCU 16:44 → ERHOLD 16:44 → PCU 04-25 11:21
PROVIDERS: Hospitalist; Nurse Practitioner Acute Care; Physician Assistant; Student in an Organized Health Care Education/Training Program; ADMIT Internal Medicine
DX: G92.8 Other toxic encephalopathy (principal); E11.51 Type 2 diabetes mellitus with diabetic peripheral angiopathy without gangrene; E78.5 Hyperlipidemia, unspecified; G47.33 Obstructive sleep apnea (adult) (pediatric); E03.9 Hypothyroidism, unspecified; I13.0 Hypertensive heart and chronic kidney disease with heart failure and stage 1 through stage 4 chronic kidney disease, or unspecified chronic kidney disease; I50.21 Acute systolic (congestive) heart failure; N18.30 Chronic kidney disease, stage 3 unspecified; E11.22 Type 2 diabetes mellitus with diabetic chronic kidney disease; I48.91 Unspecified atrial fibrillation; N17.9 Acute kidney failure, unspecified; R57.0 Cardiogenic shock; E66.9 Obesity, unspecified; R11.2 Nausea with vomiting, unspecified; E86.0 Dehydration; L03.115 Cellulitis of right lower limb; R79.9 Abnormal finding of blood chemistry, unspecified; Z79.84 Long term (current) use of oral hypoglycemic drugs; Z79.899 Other long term (current) drug therapy; Z91.199 Patient's noncompliance with other medical treatment and regimen due to unspecified reason; Z99.89 Dependence on other enabling machines and devices; Z86.73 Personal history of transient ischemic attack (TIA), and cerebral infarction without residual deficits; Z79.890 Hormone replacement therapy; Z79.02 Long term (current) use of antithrombotics/antiplatelets; Z59.89 Other problems related to housing and economic circumstances
CPT/HCPCS: 0241U; 36415; 51701; 70450; 71045; 74177; 76705; 80053; 80074; 81001; 82010; 82140; 82533; 82550; 82803; 82947; 83605; 83615; 83690; 83735; 83880; 84100; 84443; 84484; 85025; 85027; 85610; 85651; 86038; 86039; 86140; 87040; 93005; 93010; 93922; 94660; 94762; 96361; 96365-59; 96374; 96375; 96376; 99284-25; 99285-25; A9270; C8929; G0378; G0480; J0696; J0780; J1200; J1940; J2405; J7030; J7070; Q9957; Q9967